=== PATIENT | male | born 1940 | race Hispanic/Latino ===

== ENCOUNTER 2017-03-18 09:05 | Outpatient (CLI) | payer MEDICARE | END 2017-03-18 09:06 | disposition home or self-care (01) | LOC: BICRAD 09:05 | PROVIDERS: ATTEND Internal Medicine Medical Oncology | DX: C34.90 Malignant neoplasm of unspecified part of unspecified bronchus or lung (principal) | CPT/HCPCS: 36415; 71046; 80053; 82248; 83615; 84100; 84550 ==

== ENCOUNTER 2017-06-03 10:48 | Outpatient (CLI) | payer MEDICARE ==
--- NOTE | 2017-06-03 12:01 | RAD ---
PA AND LATERAL CHEST RADIOGRAPH: Date: 06-03-17 History: Dyspnea. Comparison: 09-03-16 FINDINGS: There are post-surgical changes involving the medial thorax with suture clip and radiopaque suture ma terial overlying the right hilar region medial aspect right midlung zone. There are interstitial dens ities seen at the lateral right lung base likely related to mild chronic lung changes. There is persi stent elevation of the right hemidiaphragm. The left lung is clear. Cardiac silhouette and pulmonary vasculature are within normal limits. Vascular calcifications are seen in an ectatic thoracic aorta. There is asymmetric pleural thickening seen in the right lung apex. Nodularity in the right hilar reg ion is also similar to prior exam and likely related to post- surgical change and prominence of pulmo nary vessels. There does appear to be improved aeration of the remaining right lung compared to the p rior exam. No other interval change. IMPRESSION: Post-surgical changes right hemithorax with interstitial densities lateral right lung base which may be related to mild chronic lung changes. Left lung remains clear. POS: [facility]
== END 2017-06-03 10:49 | disposition home or self-care (01) ==
LOC: RAD 10:48
PROVIDERS: ATTEND Thoracic Surgery (Cardiothoracic Vascular Surgery)
DX: C34.11 Malignant neoplasm of upper lobe, right bronchus or lung (principal); Z98.890 Other specified postprocedural states
CPT/HCPCS: 71046

== ENCOUNTER 2017-07-01 13:23 | Observation (INO) | payer MEDICARE ==
--- NOTE | 2017-07-01 15:48 | RAD ---
FOUR VIEWS LEFT KNEE: Date: 07-01-17 History: Left knee pain. FINDINGS: Mild calcifications are seen overlying the lateral joint compartment of the knee suggesting chondroca lcinosis. There is no evidence of a fracture or dislocation. No joint effusion is seen in the suprapa tellar location. Vascular calcifications are seen posterior to the knee. IMPRESSION: 1. No acute osseous abnormality left knee. 2. Suggestion of mild chondrocalcinosis involving the lateral joint compartment. 3. Vascular calcifications. POS: [facility]
[2017-07-01 16:18] LABS: #Basophils 0.1 thou/uL (0.0-0.2); #Eosinphils 0.2 thou/uL (0.0-0.7); #Lymphocytes 1.7 thou/uL (1.20-3.40); #Monocytes 0.8 thou/uL (0.11-0.59); #Neutrophils 5.8 thou/uL (1.40-6.50); %Basophils 0.7 % (0.0-1.0); %Eosinophils 2.7 % (0.0-10.0); %Lymphocytes 19.8 % (21.0-51.0); %Monocytes 9.5 % (0.0-10.0); %Neutrophils 67.3 % (42.0-75.0); Mean Corpuscular HGB CONC 33.5 g/dL (32.0-36.0); Mean Corpuscular Volume 86.4 fl (80.0-94.0); Platelet Count 263 thou/uL (130-400); Red Blood Cell (RBC) Count 5.51 mill/uL (4.70-6.10); White Blood Cell (WBC) Count 8.6 thou/uL (4.8-10.8)
--- NOTE | 2017-07-01 16:22 | RAD ---
FOUR VIEWS CERVICAL SPINE: Date: 07-01-17 History: Swelling to left side of face and abrasion to left knee after a fall. Distracting injury. FINDINGS: C1 and the cervicothoracic junction is seen on the lateral view. The vertebral body heights are withi n normal limits. There is mild narrowing of the C4-5, C5-6, and C6-7 intervertebral disc spaces with prominent osteophytes seen anteriorly at these levels. There is straightening of the normal cervical lordotic curvature. No fracture or subluxation is identified. There are laminectomy defects extending from the C3 vertebral body to the C6 vertebral body. Findings in the cervical spine are overall unch anged compared to study on 03-26-06. Prevertebral soft tissues are within normal limits. IMPRESSION: 1. No fracture or subluxation involving the cervical spine. 2. Degenerative changes as well as post-operative changes of the cervical spine. 3. Post-surgical changes in the visualized right upper lobe. POS: [facility]
[2017-07-01] MEDS ORDERED: traMADol HCl 50 MG TAB PO PRN (16:27)
[2017-07-01] MEDS ORDERED: hydrALAZINE 20 MG/ML VIAL SLOW IVP PRN (16:27)
[2017-07-01] MEDS ORDERED: Dextrose 5% in Water 1,000 ML IV PRN (16:27)
[2017-07-01] MEDS ORDERED: Ondansetron ODT 4 MG TAB PO PRN (16:27)
[2017-07-01] MEDS ORDERED: Dextrose 50% Abboject 50 ML SYRINGE SLOW IVP PRN (16:27)
[2017-07-01] MEDS ORDERED: Acetaminophen 500 MG TAB PO SCH (16:30)
[2017-07-01 16:40] LABS: ALT (SGPT) 34 U/L (8-55); AST (SGOT) 36 U/L (5-34); Albumin 4.5 g/dL (3.4-4.8); Alkaline Phosphatase 94 U/L (40-150); Anion Gap 10 mmol/L (10-20); BUN (Urea Nitrogen) 23 mg/dL (8.4-25.7); Bilirubin, Total 0.5 mg/dL (0.2-1.2); Calc. Creatinine Clearance 0 mL/min (70-130); Calcium 10.8 mg/dL (7.8-10.44); Carbon Dioxide 28 mmol/L (23-31); Chloride 103 mmol/L (98-107); Estimated GFR-MDRD 72; Globulin 4.2 g/dL (2.4-3.5); Glucose 102 mg/dL (83-110); Potassium 4.4 mmol/L (3.5-5.1); Protein, Total 8.7 g/dL (5.8-8.1); Sodium 137 mmol/L (136-145)
[2017-07-01] MEDS ORDERED: Acetaminophen 1,000 MG in Premix Bag 1 BAG IVPB SCH (16:45)
[2017-07-01 16:52] LABS: Bilirubin Negative (Negative); Blood, Urine Small (Negative); Clarity CLEAR (Clear); Glucose, Urine (Dipstick) Negative (Negative); Leukocyte Negative (Negative); Nitrite Negative (Negative); Protein, Urine (Dipstick) 100 mg/dL (Neg-Trace); Specific Gravity, Urine 1.014 (1.002-1.036); pH, Urine 6.5 (5.0-9.0)
[2017-07-01 16:55] LABS: Bacteria/HPF None Seen HPF (None Seen); Hyaline Casts/LPF 0-3 HYALINE CAST LPF (0-3 Hyaline); Pathc Cast-AUWi Flag 0.14 (0-2.49); RBC/HPF 0-3 HPF (0-3); Squamous Epithelial 0-3 HPF (0-3); WBC/HPF 0-3 HPF (0-3)
--- NOTE | 2017-07-01 17:02 | HP ---
DATE OF ADMISSION: 07/01/2017 HISTORY OF PRESENT ILLNESS: This is a 76-year-old man who was at an auto parts store. The patient tripped outside and fell landing face forward striking his right shoulder. He protected his head with his right hand. He suffered loss of consciousness. Upon awakening, was able to move all e xtremities and transported by ground EMS to [facility] in [place], [place]. The patient arrived with Mario coma scale of 15 having remained hemodynamically stable. The patient is moving all extremit ies and complaining of headache and right shoulder pain. 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 Other pertinent past medical history includes hyperlipide gamal, essential hypertension and degenerative arthritic disease. PAST SURGICAL HISTORY: Significant for coronary angiography in 2013 with stenting of the right coron leroy artery. The patient is also status post right upper lobectomy through a right thoracostomy incis ion in 06/2016. He has had previous cervical and lumbar spine fusion in the distant past. SOCIAL HISTORY: The patient is and lives at home with his . 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 He had over 40-fpfs-xuly cigarette smoking. Has not smoked in the last 30 years; however. He denies any ethanol or illicit drug abuse. FAMILY HISTORY: Noncontributory for this patient's age. PREHOSPITALIZATION MEDICATIONS: Include aspirin 325 mg p.o. daily, amlodipine 5 mg p.o. daily, levot hyroxine 175 mcg p.o. daily, metoprolol 25 mg p.o. daily, and pravastatin 80 mg p.o. at bedtime. ALLERGIES: Patient denies any known drug allergies. REVIEW OF SYSTEMS: Ten point review of system is essentially unremarkable except for as stated in pa st medical history and chief complaint. PHYSICAL EXAMINATION: GENERAL: This reveals a 76-year-old normally developed man who is otherwise coherent and interactive and appears stated age. The patient is alert and oriented x3. Appears to be in no acute distress a t the time of my evaluation. VITAL SIGNS: Includes blood pressure 160/72, pulse is 62, respiratory rate is 17, temperature 98.4 d egrees Fahrenheit, and oxygen saturation 94% on room air. HEENT: Examination reveals normocephalic and atraumatic. Pupils are equal, round, and reactive to l ight and accommodation. Extraocular muscles are intact bilaterally. No scleral icterus is present. Oral mucosa is pink and moist. No lesions are noted. NECK: Supple. No palpable lymphadenopathy or thyromegaly present. Cervical spine is nontender to p alpation, active or passive range of motion. CHEST: Chest wall is stable. He has no gross deformities or step-offs present. HEART: Reveals regular rate and rhythm. No murmurs or gallops auscultated. LUNGS: Clear to auscultation bilaterally. Breathing is regular and unlabored. ABDOMEN: Soft, nontender, and nondistended. Bowel sounds in all four quadrants appear normoactive. Liver and spleen are nonpalpable below costal margins. Pelvis is stable. No gross deformities or s tep-offs are present. GENITOURINARY: Examination reveals bilateral descended testicles and normal male genitalia. He has no blood in his urethral meatus. There was no ecchymosis of the scrotum or perineum. EXTREMITIES: Reveals 2+ radial and pedal pulses bilaterally. He has no ankle edema present. He has superficial abrasion of the anterior left knee and dorsum aspect of the right hand. MUSCULOSKELETAL: Examination reveals 5/5 muscle strength in left upper and bilateral lower extremiti es. Range of motion about the right shoulder is restricted due to pain. Thoracic and lumbar spine n ontender to palpation. IMAGING DATA: Findings includes an unremarkable cervical spine x-ray. X-ray of the right shoulder i s unremarkable for any fractures or dislocation. X-ray of the left knee reveals no fractures or disl ocation. CT scan of the brain is remarkable for scattered bilateral small subarachnoid hemorrhages. No mass effects noted. At the time of my dictation, chest x-ray has been ordered and will be review ed. IMPRESSION: 1. Status post ground level fall. 2. 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 3. Left knee sprain. 4. Right shoulder sprain. 5. Contusion of the dorsum of right hand and anterior left knee. 6. History of coronary artery disease. 7. History of hyperlipidemia. 8. History of essential hypertension. PLAN: 1. Neurosurgical consultation regarding mild acute traumatic brain injury. 2. The patient will be admitted to general surgical floor where we will continue with serial physica l and neurological examination. We will repeat CT scan of the brain in the morning or earlier should serial neurological examination still indicate. 3. We will initiate physical and occupational therapy. 4. We will hold off on aspirin at this time until stability of the subarachnoid hemorrhage has been established. Disposition will be determined following repeat CT scan of the brain tomorrow and possibly at home ve us inpatient rehabilitation if that is warranted. Above findings and plan discussed with the patie nt who indicates understanding of the information given. I have answered his questions. The patient has given consent for this admission.
--- NOTE | 2017-07-01 17:27 | CT ---
NONCONTRAST CT HEAD 07/01/17 HISTORY: Tripped over curb this morning and hit head on knee. Possible LOC. Swelling to left side of face. COMPARISON: 11/19/[address] exam on 06/17/16. FINDINGS: There is an area of encephalomalacia now present within the posterior right cerebellar hemisphere lik tracee related to remote infarction. However, this was not present on prior exam. There are a few areas of increased density within the bifrontal cerebral sulci suggesting small amoun t of subarachnoid hemorrhage in each cerebral hemisphere. There is no evidence of an acute cortical infarction, mass effect or midline shift. There is mild cer ebral and cerebellar volume loss. Ventricular system is normal in size, shape, and position. There is no evidence of a depressed calvarial fracture. The visualized paranasal sinuses and mastoid air cells are clear. IMPRESSION: 1. Small areas of subarachnoid hemorrhage in the bifrontal lobes. 2. 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 3. Above findings discussed with Dr. Quiros on 07/01/17 at 1517 hours. POS: [facility]
[2017-07-01] MEDS ORDERED: traMADol HCl 50 MG TAB PO SCH (18:00)
--- NOTE | 2017-07-01 19:09 | RAD ---
AP VIEW OF THE CHEST: 07/01/17 INDICATION: History of fall. FINDINGS: When compared to prior dated 09/03/16, the elevated right hemidiaphragm is stable. There is a small ri ght pleural effusion. Visualized left lung is clear. Heart size is mildly prominent. Chronic osseous changes are similar to the comparison study. IMPRESSION: 1. Elevation of the right hemidiaphragm. 2. Small right pleural effusion and right basilar atelectasis. POS: [facility]
[2017-07-01] MEDS: traMADol HCl 50 MG TAB PO SCH (20:26)
[2017-07-01] MEDS: Famotidine 20 MG TAB PO SCH (20:26)
--- NOTE | 2017-07-01 21:35 | RAD ---
THREE VIEWS RIGHT SHOULDER: Date: 07-01-17 History: Patient tripped and fell on curb. Fall. Right shoulder pain. FINDINGS: There is right acromioclavicular joint osteoarthritis with mild right glenohumeral osteoarthropathy. There are lucencies seen within the superior aspect of the humeral head which are probably related to subchondral cystic changes. There is no fracture or dislocation seen. The cricoclavicular and acromi oclavicular distances are within normal limits. Radiopaque suture material and post-surgical change o f the right hemithorax are noted with generalized volume loss of the right hemithorax. No other findi ngs. IMPRESSION: No acute osseous abnormality right shoulder. POS: [facility]
[2017-07-01 21:46] VITALS: BMI 29.4
--- NOTE | 2017-07-01 23:44 | CON ---
DATE OF CONSULTATION: 07/01/2017 This is a 30-minute initial patient evaluation which greater than 50% of the exam was spent counselin g and coordinating patient care. Remainder of the exam was spent in review of patient's medical lynne rds and appropriate imaging studies. CHIEF COMPLAINT: Fall with scattered traumatic subarachnoid hematoma. HISTORY OF PRESENT ILLNESS: Mr. Souza is a pleasant 76-year-old male who presents to [facility] having sustained a fall earlier today. Apparently he was walking in a parking lot. Ap parently, the patient tripped over a curb, falling on his left knee and right side of his face. He b judith to experience some headache and pain into the right shoulder which prompted him to be evaluated later in the emergency room. Head CT was obtained showing multiple scattered traumatic subarachnoid hematomas. There were cervical spine x-rays obtained showing that the patient is status post cervica l laminectomy, but no evidence of acute fracture based on x-ray. The patient currently denies weakne ss into the arms or legs. He states he does not typically have falls at home or balance issues. He does also have a history of lumbar spine surgery as well as the cervical spine surgeries mentioned ab ove with Dr. Jack Sanchez several years ago. Patient states he has done very well in this regard. The patient does take 81 mg aspirin daily for cardiac health, although does have a history of a stent placement several years ago. PHYSICAL EXAMINATION: The patient is awake, alert, and appropriate. He has full strength in the prakash ateral upper and bilateral lower extremities with intact sensation to light touch throughout. He has no worrisome myelopathic features on exam including negative Pedersen's bilaterally and no increased tone. His GCS currently is 15. IMPRESSION AND DIAGNOSES: 1. Status post fall with scattered areas of traumatic subarachnoid hematoma. 2. History of lumbar and cervical spine surgery. PLAN: I discussed the patient's case and imaging with Dr. Kennedy. At this time, the patient does no t require any type of neurosurgical intervention. However, we will monitor the patient closely with q.2-hour neuro checks. Again, he will be admitted for overnight observation, but does not require an y Neurosurgery at this time. We will repeat his head CT in the morning. At this time, he may eat. Activity: As tolerated. Please call with any questions or changes in patient's neurologic status. Patient's trauma colleagues are admitting the patient and due to the fact the patient has no worrisom e tenderness to palpation along the midline of the cervical spine, no further cervical spine imaging is necessary. Again, please call with any changes in patient's neurologic status. We will hold his aspirin.
[2017-07-02] MEDS: Acetaminophen 500 MG TAB PO SCH ×3 (00:53→11:55)
--- NOTE | 2017-07-02 02:29 | PRG ---
DATE OF SERVICE: 07/02/2017 SUBJECTIVE: Mr. Souza is currently on the surgical floor. He is status post ground level fall in which he sustained a scattered traumatic subarachnoid hematoma. The patient is stable. His pain is controlled and he is tolerating a regular diet. OBJECTIVE: VITAL SIGNS: Temperature is 98.0, heart rate 67, blood pressure 137/71, respirations 18, and oxygen saturation is 94% on room air. GENERAL: The patient is resting in bed. He is asleep. He is in no distress. By nursing report, he has not had a change in his mental status and currently has a CT ordered for the morning. ASSESSMENT AND PLAN: 1. Status post ground level fall. 2. Scattered acute traumatic subarachnoid hemorrhage. Plan will be to continue supportive care. Neuro exams, nonnarcotic pain medication and repeat CT in the morning sooner as indicated by change in mental status.
[2017-07-02] MEDS: traMADol HCl 50 MG TAB PO SCH ×2 (03:49→08:33)
[2017-07-02 05:04] LABS: Anion Gap 11 mmol/L (10-20); BUN (Urea Nitrogen) 28 mg/dL (8.4-25.7); Calc. Creatinine Clearance 73 mL/min (70-130); Calcium 9.4 mg/dL (7.8-10.44); Carbon Dioxide 25 mmol/L (23-31); Chloride 105 mmol/L (98-107); Estimated GFR-MDRD 63; Glucose 127 mg/dL (83-110); Magnesium 2.1 mg/dL (1.6-2.6); Phosphorus 3.4 mg/dL (2.3-4.7); Potassium 4.2 mmol/L (3.5-5.1); Sodium 137 mmol/L (136-145)
[2017-07-02 05:13] LABS: #Eosinphils 0.1 thou/uL (0.0-0.7); #Lymphocytes 1.7 thou/uL (1.20-3.40); #Monocytes 0.9 thou/uL (0.11-0.59); #Neutrophils 5.2 thou/uL (1.40-6.50); %Basophils 0.4 % (0.0-1.0); %Eosinophils 1.1 % (0.0-10.0); %Lymphocytes 21.5 % (21.0-51.0); %Monocytes 11.3 % (0.0-10.0); %Neutrophils 65.8 % (42.0-75.0); Hemoglobin 13.6 g/dL (14.0-18.0); Mean Corpuscular HGB CONC 33.9 g/dL (32.0-36.0); Mean Corpuscular Hemoglobin 29.4 pg (27.0-31.0); Mean Corpuscular Volume 86.8 fl (80.0-94.0); Mean Platelet Volume 6.5 fL (7.4-10.4); Platelet Count 236 thou/uL (130-400); RBC Distribution Width 13.9 % (11.5-14.5); Red Blood Cell (RBC) Count 4.63 mill/uL (4.70-6.10); White Blood Cell (WBC) Count 7.8 thou/uL (4.8-10.8)
--- NOTE | 2017-07-02 07:51 | CT ---
PRELIMINARY REPORT/[facility]/EMERGENTY AFTER-HOURS PROCEDURE CT Head Without Intravenous Contrast CLINICAL HISTORY: 76 years old, male; Condition or disease; Other: Sah; Patient HX: F/u sah TECHNIQUE: Axial computed tomography images of the head/brain without intravenous contrast. COMPARISON: CT Brain WO Con 2017-07-01 15:07 FINDINGS: Grossly stable minimal bilateral frontoparietal subarachnoid hemorrhage No hydrocephalus, mass effect, midline shift or acute territorial infarct is observed. 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 Mild prominence to the left frontoparietal extra-axial space s is grossly stable The calvarium is intact. The paranasal sinuses are grossly clear. IMPRESSION: Grossly stable minimal bilateral subarachnoid hemorrhage Thank you for allowing us to participate in the care of your patient. Dictated and Authenticated by: Felix Miguel MD 07/02/2017 5:35 AM Central Time ([place] & [place]) FINAL REPORT CT HEAD NONCONTRAST: DATE: 07/02/17. TIME: Performed on emergency basis at 0527 hours. COMPARISON: 07/01/17. HISTORY: Subarachnoid hemorrhage. Followup. FINDINGS: A small focus of hyperdensity associated with a left frontal gyrus on image 21 is similar in appearan ce to the prior study. The other areas of subarachnoid hemorrhage more superior and more superior an d more inferior are less pronounced than on the previous exam. No mass effect or shift of midline st ructures. No new areas of hemorrhage. A low-density lesion associated with posterior aspect of the right cerebellar hemisphere is stable. IMPRESSION: Interval decrease in volume of subarachnoid hemorrhage. No new abnormalities are demonstrated. POS: [facility]
[2017-07-02] MEDS: Famotidine 20 MG TAB PO SCH (08:33)
[2017-07-02 11:40] VITALS: BP 147/74; TEMP 97.7
--- NOTE | 2017-07-02 13:11 | PRG ---
DATE OF SERVICE: 07/02/2017 This is a 30-minute initial hospital visit note in which 30 minutes were spent in review the imaging record, evaluation, examination of the patient, and formulation of a plan. Greater than 50% of the t kevan was spent in counseling on Radha Souza. CHIEF COMPLAINT: Traumatic subarachnoid hemorrhage status post fall. HISTORY OF PRESENT ILLNESS: I reviewed the notes of my colleague João Fish PA-C, and agreed wi th its content. Mr. Souza is a 76-year-old man who was admitted for a fall. This demonstrated sc attered traumatic subarachnoid hemorrhage. He was on aspirin. He has a history multilevel cervical laminectomy, but it was cleared clinically and radiologically with films. This morning, his scan is not worrisome in regards to change and neurologically he is doing well and has no complaints. PHYSICAL EXAMINATION: His GCS is 15 and he is neurologically intact. IMPRESSION AND PLAN: We will arrange for followup in my clinic in one month with a repeat head CT. He will be off aspirin during this time. DIAGNOSIS: Closed head injury with subarachnoid hemorrhage.
--- NOTE | 2017-07-03 11:08 | DIS ---
DATE OF ADMISSION: 07/01/2017 DATE OF DISCHARGE: 07/02/2017 ADMITTING PHYSICIAN: Suman Harvey D.O. DISCHARGING PHYSICIAN: Suman Harvey D.O. ADMISSION DIAGNOSES: 1. Status post ground level fall. 2. 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 3. Left knee sprain. 4. Right shoulder sprain. 5. Contusion of the dorsum of right hand and anterior left knee. 6. History of coronary artery disease, present on admission. 7. History of hyperlipidemia, present on admission. 8. History of essential hypertension, present on admission. DISCHARGE DIAGNOSES: 1. Status post ground level fall. 2. 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 3. Left knee sprain. 4. Right shoulder sprain. 5. Contusion of the dorsum of right hand and anterior left knee. 6. History of coronary artery disease, present on admission. 7. History of hyperlipidemia, present on admission. 8. History of essential hypertension, present on admission. PROCEDURES PERFORMED: None. HOSPITAL COURSE: Mr. Souza is a 77-year-old man who was in an auto parts store when he tripped in the parking lot and fell landing face forward on his right shoulder. He protected his head with his right hand. Nevertheless, he did suffer loss of consciousness. He was transported to the [facility] ED by ground EMS, where he was evaluated and found to have bilateral small subarachnoid hemorrhages without mass effect. He also had mild right shoulder sprain as well as left knee sprain and contusi on of the dorsum of his right hand. His GCS remained at 15 for the duration of his stay. He was adm itted to the general surgical floor with serial physical and neurological examination. A repeat CT s can in the morning showed no evolution of his intracranial hemorrhages. He was discharged home in [facility] condition on 07/02/2017. DISCHARGE MEDICATIONS: The patient was given a prescription for tramadol 50 mg q.6 hours as needed. The patient's home aspirin was discontinued. ACTIVITY INSTRUCTIONS: Activity as tolerated. NOURISHMENT INSTRUCTIONS: Regular diet. THERAPY: None. FOLLOWUP: The patient was instructed to follow up with Dr. Kennedy in 4 weeks. He was instructed to remain off aspirin until that time. He is scheduled to have a repeat CT scan at that time.
== END 2017-07-02 14:48 | disposition home or self-care (01) ==
LOC: ERS 13:23 → SURG A 18:53
PROVIDERS: ADMIT Surgery; ATTEND Surgery
DX: S06.6X9A Traumatic subarachnoid hemorrhage with loss of consciousness of unspecified duration, initial encounter (principal); S83.92XA Sprain of unspecified site of left knee, initial encounter; S43.401A Unspecified sprain of right shoulder joint, initial encounter; S60.221A Contusion of right hand, initial encounter; S80.02XA Contusion of left knee, initial encounter; I25.10 Atherosclerotic heart disease of native coronary artery without angina pectoris; E78.5 Hyperlipidemia, unspecified; I10 Essential (primary) hypertension; M19.90 Unspecified osteoarthritis, unspecified site; W01.198A Fall on same level from slipping, tripping and stumbling with subsequent striking against other object, initial encounter; Y92.481 Parking lot as the place of occurrence of the external cause; Z79.82 Long term (current) use of aspirin; Z79.899 Other long term (current) drug therapy; Z98.1 Arthrodesis status; Z95.5 Presence of coronary angioplasty implant and graft; Z90.2 Acquired absence of lung [part of]; Z87.891 Personal history of nicotine dependence; Z85.118 Personal history of other malignant neoplasm of bronchus and lung
CPT/HCPCS: 70450 ×2; 71045; 72040; 73030; 73564; 80048; 80053; 83735; 84100; 85025 ×2; 93005; 96365; 96375; 97139; 99285; G0378; 36415; 81003; 81015; J0131; J0360; Q0162

== ENCOUNTER 2017-07-15 12:35 | Outpatient (CLI) | payer MEDICARE ==
--- NOTE | 2017-07-15 14:15 | CT ---
CT BRAIN WITHOUT CONTRAST: HISTORY: Traumatic subarachnoid hemorrhage. COMPARISON: 07/02/2017 FINDINGS: No evidence of acute infarct, hemorrhage, midline shift, or abnormal extraaxial fluid collection is s een. The previously noted tiny amount of subarachnoid hemorrhage in the left frontal region has reso lved in the interim. Old right cerebellar infarction is again seen. Ventricular size is stable, and basilar cisterns are patent. The bony calvarium is intact. The visualized paranasal sinuses and ma stoid air cells are well aerated. IMPRESSION: 1. No CT evidence of acute intracranial process. 2. Interval resolution of subarachnoid hemorrhage since 07/02/2017. This study was interpreted in consultation with Dr. Mj Fallon, who concurs. POS: [facility]
== END 2017-07-15 12:36 | disposition home or self-care (01) ==
LOC: TBSIIMAG 12:35
PROVIDERS: ATTEND Surgery
DX: S06.6X9D Traumatic subarachnoid hemorrhage with loss of consciousness of unspecified duration, subsequent encounter (principal)
CPT/HCPCS: 70450

== ENCOUNTER 2017-09-29 10:54 | Outpatient (CLI) | payer MEDICARE | END 2017-09-29 10:55 | disposition home or self-care (01) | LOC: BICRAD 10:54 | PROVIDERS: ATTEND Internal Medicine Medical Oncology | DX: C34.11 Malignant neoplasm of upper lobe, right bronchus or lung (principal) | CPT/HCPCS: 71046 ==

== ENCOUNTER 2017-12-23 11:45 | Outpatient (CLI) | payer MEDICARE ==
--- NOTE | 2017-12-23 13:51 | RAD ---
CHEST PA AND LATERAL: HISTORY: A 77-year-old male with a history of lung cancer, followup. COMPARISON: 07/01/2017. FINDINGS: Right-sided volume loss with some right hemidiaphragm elevation and some pleural and parenchymal opac ity changes in the right chest having the appearance of old scarring and volume loss. The left lung is clear. Heart size is within normal limits. IMPRESSION: Volume loss with chronic changes in the right chest. No overt acute process. No overt metastasis. POS: [facility]
== END 2017-12-23 11:46 | disposition home or self-care (01) ==
LOC: BICRAD 11:45
PROVIDERS: ATTEND Internal Medicine Medical Oncology
DX: C34.90 Malignant neoplasm of unspecified part of unspecified bronchus or lung (principal)
CPT/HCPCS: 71046

== ENCOUNTER 2018-02-13 09:06 | Emergency (ER) | payer MEDICARE | END 2018-02-13 10:03 | disposition home or self-care (01) | LOC: ERS 09:06 | DX: B02.9 Zoster without complications (principal); I10 Essential (primary) hypertension; Z85.118 Personal history of other malignant neoplasm of bronchus and lung; Z79.84 Long term (current) use of oral hypoglycemic drugs; Z79.899 Other long term (current) drug therapy; Z79.82 Long term (current) use of aspirin | CPT/HCPCS: 99283 ==

== ENCOUNTER 2018-03-02 14:15 | Outpatient (CLI) | payer MEDICARE ==
--- NOTE | 2018-03-02 15:32 | RAD ---
CHEST PA AND LATERAL TWO VIEWS: History: 77-year-old male with history of right upper lobe lung neoplasm. Comparison: 12-15-17 FINDINGS: There is some pleural and parenchymal scarring in the right lung with some associated volume loss. Th ere are some minimal increased markings in the left costophrenic angle which appear stable. Heart siz e is within normal limits. No confluent pneumonia, overt edema, or pleural effusion. IMPRESSION: Stable post-operative changes right chest. Minimal stable chronic changes left costophrenic angle. POS: [facility]
== END 2018-03-02 14:16 | disposition home or self-care (01) ==
LOC: RAD 14:15
PROVIDERS: ATTEND Thoracic Surgery (Cardiothoracic Vascular Surgery)
DX: C34.11 Malignant neoplasm of upper lobe, right bronchus or lung (principal); Z98.890 Other specified postprocedural states
CPT/HCPCS: 71046

== ENCOUNTER 2018-04-29 09:46 | Outpatient (CLI) | payer MEDICARE ==
--- NOTE | 2018-04-29 10:14 | RAD ---
PA AND LATERAL CHEST RADIOGRAPH: Date: 04-29-18 History: Malignant neoplasm right upper lobe. Comparison: 12-23-17, 06-03-17, 07-25-16 FINDINGS: Again noted is volume loss involving the right hemithorax with persistent interstitial opacities at t he right lung base and linear densities in the right upper lung zone medially, stable when compared t o the prior studies and likely related to prior post-operative changes of the right hemithorax with a reas of pleural and parenchymal scarring. Minimal linear densities are again seen at the lateral aspe ct left lung base, also likely attributable to scarring. No discrete pulmonary nodule or mass is seen . Cardiac silhouette and pulmonary vasculature are within normal limits. Vascular calcifications are seen in the thoracic aorta. Degenerative changes are again noted in the spine with calcification of t he anterior longitudinal ligament. IMPRESSION: 1. Stable post-operative changes right hemithorax with areas of pleural and parenchymal scarring and persistent volume loss and elevation of the right hemidiaphragm. 2. Stable linear and interstitial densities left lung base, also likely related to scarring. 3. No acute cardiopulmonary process. POS: [facility]
== END 2018-04-29 09:47 | disposition home or self-care (01) ==
LOC: BICRAD 09:46
PROVIDERS: ATTEND Internal Medicine Medical Oncology
DX: C34.11 Malignant neoplasm of upper lobe, right bronchus or lung (principal); J98.6 Disorders of diaphragm; R91.8 Other nonspecific abnormal finding of lung field; Z98.890 Other specified postprocedural states
CPT/HCPCS: 71046; 80053; 82248; 83615; 84100; 84550

== ENCOUNTER 2018-09-01 08:27 | Outpatient (CLI) | payer MEDICARE ==
--- NOTE | 2018-09-01 09:19 | RAD ---
RADIOGRAPH CHEST 2 VIEWS: Date: 09/01/2018. Time: 8:42 a.m. HISTORY: A 78-year-old male with malignant neoplasm of upper lobe, right bronchus. COMPARISON: 04/29/2018. FINDINGS: Right lung volume is smaller than the left. Nodular interstitial pattern in the right lung, especial ly at the right base, is unchanged. No pleural effusion. The left lung remains clear. No cardiomeg mariama. No pneumothorax. No new consolidation. No interval change. IMPRESSION: 1. Postsurgical changes in the right lung, status post right lobectomy. 2. No acute findings. JN [] POS: [facility]
== END 2018-09-01 08:28 | disposition home or self-care (01) ==
LOC: BICRAD 08:27
PROVIDERS: ATTEND Internal Medicine Medical Oncology
DX: C34.11 Malignant neoplasm of upper lobe, right bronchus or lung (principal); Z90.2 Acquired absence of lung [part of]
CPT/HCPCS: 71046

== ENCOUNTER 2018-11-02 08:35 | Outpatient (CLI) | payer MEDICARE ==
--- NOTE | 2018-11-02 10:53 | RAD ---
CHEST 2 VIEWS: Date: 11/01/18 HISTORY: Malignant neoplasm of upper lobe, right bronchus. COMPARISON: 09/01/18. FINDINGS: Postoperative changes right chest with some volume loss in the apex and some right hemidiaphragm elev ation. Increased linear, interstitial, and reticulonodular parenchymal changes noted bilaterally. The re is a nodular area projected over the left lower lobe on the AP view only overlying the 6th anterio r rib, possibly summation artifact. Consider short-term follow-up plain film exams. If these persist, a follow-up CT scan might, at that point, be indicated. IMPRESSION: 1. Postop changes right chest, stable. 2. Questionable nodular density seen on the PA radiograph only in the left lower chest region. POS: [facility]
== END 2018-11-02 08:36 | disposition home or self-care (01) ==
LOC: BICRAD 08:35
PROVIDERS: ATTEND Thoracic Surgery (Cardiothoracic Vascular Surgery)
DX: C34.11 Malignant neoplasm of upper lobe, right bronchus or lung (principal); Z98.890 Other specified postprocedural states
CPT/HCPCS: 71046

== ENCOUNTER 2019-01-10 09:02 | Outpatient (CLI) | payer MEDICARE ==
--- NOTE | 2019-01-10 10:09 | RAD ---
2 VIEWS CHEST: Date: 01/10/19 COMPARISON: 11/02/18. 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 FINDINGS: 2 views of the chest show a normal sized cardiomediastinal silhouette. There is stable opacity of the inferior aspect of the right thorax which may represent an elevated hemidiaphragm versus an infiltra te in the right lower lobe. IMPRESSION: Stable exam. POS: [facility]
== END 2019-01-10 09:03 | disposition home or self-care (01) ==
LOC: BICRAD 09:02
PROVIDERS: ATTEND Internal Medicine Medical Oncology
DX: C34.11 Malignant neoplasm of upper lobe, right bronchus or lung (principal)
CPT/HCPCS: 71046

== ENCOUNTER 2019-06-08 11:34 | Outpatient (CLI) | payer MEDICARE ==
--- NOTE | 2019-06-08 11:55 | RAD ---
EXAM: Chest PA and lateral: HISTORY: Right lung cancer COMPARISON: 01/02/2019 FINDINGS: Heart: Normal cardiac silhouette Aorta: Unremarkable Pulmonary vessels: Normal Costophrenic angles: Partial obscuration right hemidiaphragm. There is stable elevation the right hem idiaphragm. Lungs: Parenchymal changes in the right lung base. Diminished right lung volume. Pneumothorax: No pneumothorax Osseous structures: No osseous abnormalities IMPRESSION: Persistent decreased lung volume and obscuration of the right hemidiaphragm. Persistent parenchymal o pacities.
== END 2019-06-08 11:35 | disposition home or self-care (01) ==
LOC: BICRAD 11:34
PROVIDERS: ATTEND Internal Medicine Medical Oncology
DX: C34.91 Malignant neoplasm of unspecified part of right bronchus or lung (principal); J98.6 Disorders of diaphragm; R91.8 Other nonspecific abnormal finding of lung field
CPT/HCPCS: 71046

== ENCOUNTER 2019-12-13 09:52 | Outpatient (CLI) | payer MEDICARE ==
--- NOTE | 2019-12-13 10:09 | RAD ---
EXAM: Chest PA and lateral: HISTORY: Lung cancer. COMPARISON: 06/08/2019 FINDINGS: Heart: Normal cardiac silhouette Aorta: Atherosclerotic Pulmonary vessels: Normal Costophrenic angles: Costophrenic angles are clear. Stable elevation of the right hemidiaphragm. Lungs: Right lung parenchymal changes. Pneumothorax: No pneumothorax Osseous structures: Chronic changes involving the left and right acromioclavicular joints. IMPRESSION: No acute cardiopulmonary process. Atherosclerosis. Stable diminished right lung volume.
== END 2019-12-13 09:53 | disposition home or self-care (01) ==
LOC: BICRAD 09:52
PROVIDERS: ATTEND Internal Medicine Medical Oncology
DX: C34.11 Malignant neoplasm of upper lobe, right bronchus or lung (principal); I70.90 Unspecified atherosclerosis
CPT/HCPCS: 71046

== ENCOUNTER 2020-03-13 14:18 | Outpatient (CLI) | payer MEDICARE ==
--- NOTE | 2020-03-13 14:44 | RAD ---
XR Chest Pa Lat STANDARD History: Cough Comparison: Radiograph February 29, 2020 Findings: Similar appearance of the extensive peripheral and perihilar opacities. No pneumothorax. El evation right hemidiaphragm. Relative to the December 13, 2019 exam the airspace opacities have progressed. Volume loss right douglas g. Impression: Findings concerning for multifocal pneumonia superimposed upon chronic lung change. Follo w-up recommended.
== END 2020-03-13 14:19 | disposition home or self-care (01) ==
LOC: BICRAD 14:18
PROVIDERS: ATTEND Family Medicine
DX: R05 Cough (principal)
CPT/HCPCS: 71046

== ENCOUNTER 2020-04-12 09:27 | Outpatient (CLI) | payer MEDICARE ==
--- NOTE | 2020-04-12 10:00 | RAD ---
EXAM: Chest PA and lateral: HISTORY: Dyspnea. COMPARISON: 03/13/2020 FINDINGS: Heart: Normal cardiac silhouette Aorta: Stable atherosclerosis Pulmonary vessels: Normal Costophrenic angles: Costophrenic angles are clear. Lungs: Persistent diminished lung volume in the right hemithorax with tenting of the right hemidiaphr agm. Stable chronic interstitial changes of the lung parenchyma. Pneumothorax: No pneumothorax Osseous structures: No osseous abnormalities IMPRESSION: 1. No significant interval change. No acute cardiac pulmonary process. Persistent diminished right he mithoracic lung volume. 2. Better interrogation of the lung parenchyma with a postcontrast chest CT is recommended
== END 2020-04-12 09:28 | disposition home or self-care (01) ==
LOC: BICRAD 09:27
PROVIDERS: ATTEND Internal Medicine Pulmonary Disease
DX: R06.00 Dyspnea, unspecified (principal); R91.8 Other nonspecific abnormal finding of lung field
CPT/HCPCS: 71046

== ENCOUNTER 2020-07-11 10:48 | Outpatient (CLI) | payer MEDICARE | END 2020-07-11 10:49 | disposition home or self-care (01) | LOC: BICRAD 10:48 | PROVIDERS: ATTEND Internal Medicine Pulmonary Disease | DX: R06.00 Dyspnea, unspecified (principal) | CPT/HCPCS: 71046 ==

== ENCOUNTER 2022-02-14 07:56 | Outpatient (CLI) | payer MEDICARE | END 2022-02-14 07:57 | disposition home or self-care (01) | LOC: BICRAD 07:56 | PROVIDERS: ATTEND Internal Medicine Medical Oncology | DX: R05.9 Cough, unspecified (principal); R06.02 Shortness of breath; C34.11 Malignant neoplasm of upper lobe, right bronchus or lung | CPT/HCPCS: 71046 ==

== ENCOUNTER 2022-02-19 09:25 | Outpatient (CLI) | payer MEDICARE | END 2022-02-19 09:26 | disposition home or self-care (01) | LOC: BICCT 09:25 | PROVIDERS: ATTEND Internal Medicine Medical Oncology | DX: Z12.2 Encounter for screening for malignant neoplasm of respiratory organs (principal); F17.210 Nicotine dependence, cigarettes, uncomplicated; Z90.2 Acquired absence of lung [part of] | CPT/HCPCS: 71271 ==

== ENCOUNTER 2022-11-18 14:53 | Observation (INO) | payer MEDICARE ==
[2022-11-18] MEDS ORDERED: Ondansetron PF 4 MG/2 ML Vial ONE (15:58)
[2022-11-18 16:24] LABS: #Basophils 0.1 thou/uL (0.0-0.2); #Eosinphils 0.1 thou/uL (0.0-0.7); #Monocytes 0.8 thou/uL (0.11-0.59); %Basophils 0.6 % (0.0-1.0); %Eosinophils 1.2 % (0.0-10.0); %Lymphocytes 11.7 % (21.0-51.0); %Monocytes 8.7 % (0.0-10.0); %Neutrophils 77.5 % (42.0-75.0); Hematocrit 41.7 % (42.0-52.0); Hemoglobin 13.2 g/dL (14.0-18.0); Mean Corpuscular HGB CONC 31.7 g/dL (32.0-36.0); Mean Corpuscular Hemoglobin 26.8 pg (27.0-31.0); Mean Corpuscular Volume 84.6 fl (78.0-98.0); Mean Platelet Volume 8.9 fL (7.4-10.4); Platelet Count 244 10x3/uL (130-400); RBC Distribution Width 15.3 % (11.5-14.5); Red Blood Cell (RBC) Count 4.93 mill/uL (4.70-6.10); White Blood Cell (WBC) Count 9.1 10x3/uL (4.8-10.8)
[2022-11-18 16:52] LABS: ALT (SGPT) 20 U/L (8-55); AST (SGOT) 21 U/L (5-34); Acetaminophen Less than 10 mcg/mL (10.0-30.0); Albumin 4.1 g/dL (3.4-4.8); Alcohol Less than 10.0 mg/dL (Less than 10); Alkaline Phosphatase 94 U/L (40-110); Anion Gap 13 mmol/L (10-20); BUN (Urea Nitrogen) 23 mg/dL (8.4-25.7); Bilirubin, Total 0.6 mg/dL (0.2-1.2); Calc. Creatinine Clearance 0 mL/min (70-130); Calcium 9.7 mg/dL (7.8-10.44); Carbon Dioxide 21 mmol/L (23-31); Chloride 103 mmol/L (98-107); Estimated GFR 55; Globulin 3.3 g/dL (2.4-3.5); Glucose 137 mg/dL (83-110); Magnesium 1.9 mg/dL (1.6-2.6); Potassium 3.9 mmol/L (3.5-5.1); Protein, Total 7.4 g/dL (5.8-8.1); Salicylate Less than 8.0 mg/dL (15.0-30.0); Sodium 133 mmol/L (136-145); Troponin I 0.012 ng/mL (< 0.028)
[2022-11-18 17:56] LABS: Bacteria/HPF None Seen HPF (None Seen); Bilirubin Negative (Negative); Blood, Urine Negative (Negative); CAUTI Indications for Culture Alt mental st,lethar; Clarity Clear (Clear); Glucose, Urine (Dipstick) Normal (Negative); Ketone, Urine Negative (Negative); Leukocyte Negative Leu/uL (Negative); Nitrite Negative (Negative); Protein, Urine (Dipstick) 70 mg/dL (Neg-Trace); RBC/HPF 0-3 HPF (0-3); Specific Gravity, Urine 1.011 (1.002-1.036); Squamous Epithelial 0-3 HPF (0-3); Urobilinogen Normal mg/dL (Less than 2); WBC/HPF 0-3 HPF (0-3)
[2022-11-18 18:04] LABS: Amphetamine Not Detected (NotDetected); Barbiturates Screen Not Detected (NotDetected); Benzodiazepine Screen Not Detected (NotDetected); Cocaine Metabolite Screen Not Detected (NotDetected); Methadone Not Detected (NotDetected); Methamphetamine Not Detected (NotDetected); Opiate Screen Detected (NotDetected); Oxycodone Screen Not Detected (NotDetected); Phencyclidine (PCP) Not Detected (NotDetected); THC/Cannabinoid Screen Not Detected (NotDetected); Tricyclic Screen Not Detected (NotDetected); Urine Culture Reflex No No
[2022-11-18] MEDS ORDERED: Senokot S 8.6-50 MG TAB PO PRN (20:06)
[2022-11-18] MEDS ORDERED: hydrALAZINE 20 MG/ML VIAL SLOW IVP PRN (20:06)
[2022-11-18] MEDS ORDERED: Acetaminophen 325 MG TAB PO PRN (20:06)
[2022-11-18] MEDS ORDERED: Ondansetron PF 4 MG/2 ML Vial IVP PRN (20:06)
[2022-11-18] MEDS ORDERED: Acetaminophen 650 MG Suppository PR PRN (20:06)
[2022-11-18] MEDS ORDERED: Ondansetron ODT 4 MG TAB PO PRN (20:06)
[2022-11-18] MEDS ORDERED: Electrolyte Replacement Protocol 1 EACH FS SCH (20:15)
[2022-11-18] MEDS ORDERED: Magnesium 2 GM/50 ML(in water) 2 GM in Premix Bag 1 BAG IVPB SCH (20:30)
[2022-11-18] MEDS ORDERED: Atorvastatin Calcium 40 MG TAB PO SCH (21:00)
[2022-11-18] MEDS: Sodium Chloride 0.9% 1,000 ML IV SCH (21:28)
[2022-11-18 22:20] LABS: Troponin I Less than 0.010 ng/mL (< 0.028)
[2022-11-19 00:17] VITALS: BMI 30.6
[2022-11-19 04:10] LABS: #Eosinphils 0.3 thou/uL (0.0-0.7); #Monocytes 0.9 thou/uL (0.11-0.59); #Neutrophils 4.3 thou/uL (1.40-6.50); %Basophils 0.6 % (0.0-1.0); %Eosinophils 3.8 % (0.0-10.0); %Lymphocytes 19.7 % (21.0-51.0); %Monocytes 13.5 % (0.0-10.0); %Neutrophils 62.1 % (42.0-75.0); Hematocrit 40.2 % (42.0-52.0); Hemoglobin 12.6 g/dL (14.0-18.0); Mean Corpuscular HGB CONC 31.3 g/dL (32.0-36.0); Mean Corpuscular Hemoglobin 26.4 pg (27.0-31.0); Mean Corpuscular Volume 84.3 fl (78.0-98.0); Mean Platelet Volume 8.8 fL (7.4-10.4); Platelet Count 253 10x3/uL (130-400); RBC Distribution Width 15.4 % (11.5-14.5); Red Blood Cell (RBC) Count 4.77 mill/uL (4.70-6.10); White Blood Cell (WBC) Count 6.9 10x3/uL (4.8-10.8)
[2022-11-19 04:15] LABS: Hemoglobin A1c 5.6 % (4.0-6.0)
[2022-11-19 04:32] LABS: Anion Gap 11 mmol/L (10-20); BUN (Urea Nitrogen) 21 mg/dL (8.4-25.7); CK (CPK) 141 U/L (30-200); Calc. Creatinine Clearance 55 mL/min (70-130); Calcium 9.2 mg/dL (7.8-10.44); Carbon Dioxide 26 mmol/L (23-31); Chloride 106 mmol/L (98-107); Cholesterol 112 mg/dl (< 200 Desired); Estimated GFR 56; Glucose 111 mg/dL (83-110); HDL Cholesterol 28 mg/dL (>60 Neg Risk); LDL Cholesterol, Calculated 66 mg/dL; Magnesium 2.4 mg/dL (1.6-2.6); Potassium 4.2 mmol/L (3.5-5.1); Sodium 139 mmol/L (136-145); Triglycerides 91 mg/dL (Less than 150)
[2022-11-19] MEDS ORDERED: Levothyroxine 175 MCG TAB PO SCH (06:00)
[2022-11-19] MEDS: Sodium Chloride 0.9% 1,000 ML IV SCH ×2 (06:43→16:51)
[2022-11-19] MEDS ORDERED: Aspirin 81 mg Enteric Coated Tablet PO SCH (09:00)
[2022-11-19 19:46] VITALS: BP 168/82; TEMP 98
== END 2022-11-19 19:46 | disposition home or self-care (01) ==
LOC: ERS 14:53 → ERHOLD 20:04 → 2NO 21:06
PROVIDERS: ADMIT Hospitalist; ATTEND Hospitalist
DX: R41.0 Disorientation, unspecified (principal); G93.41 Metabolic encephalopathy; I08.1 Rheumatic disorders of both mitral and tricuspid valves; I10 Essential (primary) hypertension; E78.5 Hyperlipidemia, unspecified; I25.10 Atherosclerotic heart disease of native coronary artery without angina pectoris; E03.9 Hypothyroidism, unspecified; Z87.891 Personal history of nicotine dependence; Z79.890 Hormone replacement therapy; Z79.899 Other long term (current) drug therapy; Z95.5 Presence of coronary angioplasty implant and graft
CPT/HCPCS: 70450; 70551; 71045; 80048; 80061; 80306; 80307; 81001; 82140; 82550 ×2; 83036; 83735 ×2; 84484 ×2; 85025; 93005; 93306; 96361; 96372; 96374; 96375; 99285; G0378 ×3; 36415; 80053; 84443; J1650; J2405; J3475; J7050

== ENCOUNTER 2023-03-02 10:54 | Outpatient (CLI) | payer MEDICARE | END 2023-03-02 10:55 | disposition home or self-care (01) | LOC: BICCT 10:54 | PROVIDERS: ATTEND Internal Medicine | DX: Z12.2 Encounter for screening for malignant neoplasm of respiratory organs (principal); F17.210 Nicotine dependence, cigarettes, uncomplicated; K80.20 Calculus of gallbladder without cholecystitis without obstruction; J98.4 Other disorders of lung; Z90.2 Acquired absence of lung [part of] | CPT/HCPCS: 71271 ==